=== PATIENT | male | born 1970 | race Caucasian/White ===

== ENCOUNTER → 2020-01-29 | Outpatient (CLI) | payer BC, OTHER ==
[~2020-01-29] MED LIST: GABA300C10 PO; LORA1TAB46 PO
[2020-01-29 10:40] LABS: BASOPHILS # (AUTO) 0.04 x10^3/uL (0-0.1); BASOPHILS % (AUTO) 1 % (0-1); EOSINOPHILS # (AUTO) 0.12 x10^3/uL (0-0.4); EOSINOPHILS % (AUTO) 2 % (1-7); LYMPHOCYTES # (AUTO) 1.24 x10^3/uL (1-3.4); LYMPHOCYTES % (AUTO) 20 % (22-44); MD NO; MEAN CORPUSCULAR HEMOGLOBIN 30.1 pg (27.5-34.5); MEAN CORPUSCULAR HGB CONC 33.3 g/dL (33.2-36.2); MEAN CORPUSCULAR VOLUME 90.4 fL (81-97); MEAN PLATELET VOLUME 7.6 fL (7.4-10.4); MONOCYTES # (AUTO) 0.62 x10^3/uL (0.2-0.8); MONOCYTES % (AUTO) 10 % (2-9); NEUTROPHILS # (AUTO) 4.29 x10^3/uL (1.8-6.8); NEUTROPHILS % (AUTO) 68 % (42-75); PLATELET COUNT 272 x10^3/uL (130-400); RED BLOOD COUNT 5.11 x10^6/uL (4.38-5.82); RED CELL DISTRIBUTION WIDTH 13.3 % (9.4-14.8)
[2020-01-29 10:41] LABS: ALBUMIN 3.7 g/dL (3.4-5.0); ANION GAP 4 mmol/L (5-15); CALCIUM 9.3 mg/dL (8.5-10.1); CHLORIDE 109 mmol/L (98-107)
[2020-01-29 11:08] LABS: % IRON SATURATION 29 % (20-55); ALANINE AMINOTRANSFERASE 42 U/L (12-78); ALKALINE PHOSPHATASE 74 U/L (45-117); BILIRUBIN,TOTAL 0.5 mg/dL (0.2-1.0); CREATININE 1.04 mg/dL (0.7-1.3); IRON LEVEL 99 mcg/dL (65-175); PREALBUMIN 20.8 mg/dL (20.0-40.0); TOTAL IRON BINDING CAPACITY 342 mcg/dL (250-450); TOTAL PROTEIN 7.7 g/dL (6.4-8.2); TRANSFERRIN 252 mg/dL (200-360)
[2020-01-29 11:10] LABS: FOLATE LEVEL 9.1 ng/mL (3.1-17.5)
== END | disposition home or self-care (01) ==
LOC: STAR 09:18
PROVIDERS: ATTEND Thoracic Surgery (Cardiothoracic Vascular Surgery)
DX: Z01.818 Encounter for other preprocedural examination (principal)
CPT/HCPCS: 36415; 71046; 80053; 82306; 82607; 82728; 82746; 83540; 83550; 83970; 84134; 84425; 84466; 85025; 93005

== ENCOUNTER → 2020-02-01 | Outpatient (CLI) | payer OTHER | END | disposition home or self-care (01) | LOC: STAR 14:29 | PROVIDERS: ATTEND Anesthesiology | DX: Z20.828 Contact with and (suspected) exposure to other viral communicable diseases (principal) | CPT/HCPCS: 36415; 87635 ==

== ENCOUNTER 2020-02-06 06:11 | Inpatient (IN) | payer BC, OTHER ==
[~2020-02-06] VITALS: Ht 185.4 cm; Wt 145.3 kg
[2020-02-06] MEDS ORDERED: LACTATED RINGERS 1,000 ML IV SCH (06:26)
[2020-02-06] MEDS ORDERED: ACETAMINOPHEN 100 ML IVPB ONE (06:30)
[2020-02-06] MEDS ORDERED: CHLORHEXIDINE 15 ML UDC MM ONE (06:30)
[2020-02-06] MEDS ORDERED: SCOPOLAMINE 1MG PATCH TD ONE (06:30)
[2020-02-06] MEDS ORDERED: FENTANYL PF 250 MCG/5ML ONE ×2 (06:31→08:12)
[2020-02-06] MEDS ORDERED: MIDAZOLAM 1 MG/ML, 2ML ONE (06:31)
[2020-02-06] MEDS ORDERED: PHENYLEPHRINE 10 MG/ML ONE (06:35)
[2020-02-06] MEDS ORDERED: NEOSTIGMINE 1 MG/ML, 10ML ONE (06:54)
[2020-02-06] MEDS ORDERED: ONDANSETRON 2MG/ML, 2ML ONE (06:54)
[2020-02-06] MEDS ORDERED: PROPOFOL 10 MG/ML, 20ML ONE (06:54)
[2020-02-06] MEDS ORDERED: CEFAZOLIN 1,000 MG ONE ×2 (06:54→07:45)
[2020-02-06] MEDS ORDERED: GLYCOPYRROLATE 0.2MG/1ML, 5ML ONE (06:54)
[2020-02-06] MEDS ORDERED: ROCURONIUM 10MG/ML,5ML ONE (06:54)
[2020-02-06] MEDS ORDERED: DEXAMETHASONE 4 MG/ML, 1ML ONE (06:54)
[2020-02-06] MEDS ORDERED: PROPOFOL 50 ML ONE (06:54)
[2020-02-06] MEDS ORDERED: LABETALOL 5MG/ML, 20ML IV PRN (07:00)
[2020-02-06] MEDS ORDERED: MEPERIDINE/PF 25MG/0.5ML IVPush PRN (07:00)
[2020-02-06] MEDS ORDERED: hydrALAzine 20 MG/ML, 1ML IV PRN (07:00)
[2020-02-06] MEDS ORDERED: OXYcodone 5 MG/5 ML ORAL.SOL UDC PO PRN (07:00)
[2020-02-06] MEDS ORDERED: HYDROmorphone 1 MG/ML, 1ML INJ IVPush PRN (07:00)
[2020-02-06] MEDS ORDERED: HALOPERIDOL 5 MG/ML IV PRN (07:00)
[2020-02-06] MEDS ORDERED: PROMETHAZINE 25 MG/ML, 1ML IVPush PRN (07:00)
[2020-02-06 07:16] LABS: CHOL/HDL RATIO 4.8; LDL/HDL RATIO 3.5 (0.5-3.0)
[2020-02-06] MEDS ORDERED: EPINEPHRINE 1 MG/ML, 1ML ONE (07:23)
[2020-02-06] MEDS ORDERED: BUPIVACAINE/PF 0.5% ONE (07:23)
[2020-02-06] MEDS ORDERED: hydrALAzine 20 MG/ML, 1ML ONE ×2 (07:35→08:36)
[2020-02-06] MEDS ORDERED: BUPIVACAINE/PF-EPI 0.5% 1:200K INFIL ONE (07:50)
[2020-02-06] MEDS ORDERED: FENTANYL PF 100 MCG/2ML ONE (09:30)
[2020-02-06] MEDS ORDERED: HYDROmorphone 1 MG/ML, 1ML INJ IM PRN (09:30)
[2020-02-06] MEDS ORDERED: LORazepam 2 MG/ML, 1ML IV PRN (09:30)
[2020-02-06] MEDS ORDERED: DIPHENHYDRAMINE 50 MG/ML, 1ML IV PRN (09:30)
[2020-02-06] MEDS ORDERED: ONDANSETRON 2MG/ML, 2ML IVPush PRN (09:30)
[2020-02-06] MEDS ORDERED: morphine SULFATE 10 MG/ML, 1ML ONE (09:33)
[2020-02-06] MEDS: FENTANYL PF 100 MCG/2ML IV PRN ×3 (09:34→09:50)
[2020-02-06] MEDS: morphine SULFATE 10 MG/ML, 1ML IVPush PRN ×2 (09:35→10:00)
[2020-02-06] MEDS ORDERED: ENOXAPARIN 40 MG/0.4 ML SQ SCH (11:00)
[2020-02-06] MEDS: ACETAMINOPHEN 100 ML IV SCH ×2 (13:25→20:30)
[2020-02-06] MEDS: HYDROmorphone 1 MG/ML, 1ML INJ IVPush PRN ×3 (13:55→18:51)
[2020-02-06 14:30] VITALS: BP 131/72
[2020-02-06] MEDS: HYDROcodone/APAP 7.5-325MG/15ML UDC PO PRN ×2 (16:12→20:30)
[2020-02-06] MEDS: POTASSIUM CHLORIDE 20 MEQ in LACTATED RINGERS 1,000 ML IV SCH ×2 (16:12→19:05)
[2020-02-06] MEDS: LORATADINE 10 MG TABLET PO SCH (20:29)
[2020-02-06] MEDS: FAMOTIDINE 20 MG/2 ML IVPush SCH (20:29)
[2020-02-06 20:59] VITALS: BP_SYST 118; BP_SYST 159; BP_DIAS 68; BP_DIAS 80
[2020-02-07] MEDS: POTASSIUM CHLORIDE 20 MEQ in LACTATED RINGERS 1,000 ML IV SCH (00:41)
[2020-02-07] MEDS: HYDROcodone/APAP 7.5-325MG/15ML UDC PO PRN ×3 (01:15→09:16)
[2020-02-07] MEDS: HYDROmorphone 1 MG/ML, 1ML INJ IVPush PRN (03:46)
[2020-02-07 04:18] VITALS: BP 161/80
[2020-02-07 05:30] LABS: ALBUMIN 3.4 g/dL (3.4-5.0); ANION GAP 6 mmol/L (5-15); CALCIUM 8.6 mg/dL (8.5-10.1); CHLORIDE 105 mmol/L (98-107); CREATININE 0.94 mg/dL (0.7-1.3)
[2020-02-07 05:38] LABS: BASOPHILS % (AUTO) 0 % (0-1); EOSINOPHILS # (AUTO) 0.01 x10^3/uL (0-0.4); EOSINOPHILS % (AUTO) 0 % (1-7); LYMPHOCYTES # (AUTO) 1.04 x10^3/uL (1-3.4); LYMPHOCYTES % (AUTO) 7 % (22-44); MD NO; MEAN CORPUSCULAR HEMOGLOBIN 30.2 pg (27.5-34.5); MEAN CORPUSCULAR HGB CONC 33.3 g/dL (33.2-36.2); MEAN CORPUSCULAR VOLUME 90.7 fL (81-97); MEAN PLATELET VOLUME 7.6 fL (7.4-10.4); MONOCYTES # (AUTO) 1.34 x10^3/uL (0.2-0.8); MONOCYTES % (AUTO) 9 % (2-9); NEUTROPHILS # (AUTO) 11.87 x10^3/uL (1.8-6.8); NEUTROPHILS % (AUTO) 83 % (42-75); PLATELET COUNT 269 x10^3/uL (130-400); RED BLOOD COUNT 4.74 x10^6/uL (4.38-5.82); RED CELL DISTRIBUTION WIDTH 13.6 % (9.4-14.8)
[2020-02-07 06:32] VITALS: BP 160/77
[2020-02-07] MEDS: FAMOTIDINE 20 MG/2 ML IVPush SCH (07:53)
[2020-02-07] MEDS: LORATADINE 10 MG TABLET PO SCH (07:53)
[2020-02-07] MEDS ORDERED: HYDR15SO3 PO (08:48)
[2020-02-07 10:15] VITALS: BP 138/85
== END 2020-02-07 10:42 | disposition home or self-care (01) | DRG 621 ==
LOC: ORIP 06:11 → 4NE 10:40 → DCLOUNGE 02-07 10:25
PROVIDERS: ADMIT Thoracic Surgery (Cardiothoracic Vascular Surgery); ATTEND Thoracic Surgery (Cardiothoracic Vascular Surgery)
PROC: 0DB64Z3 Excision of Stomach, Percutaneous Endoscopic Approach, Vertical (ICD-10-PCS; principal; 2020-02-06 07:30)
DX: E66.01 Morbid (severe) obesity due to excess calories (principal); E78.00 Pure hypercholesterolemia, unspecified; I10 Essential (primary) hypertension; K66.0 Peritoneal adhesions (postprocedural) (postinfection); Z68.41 Body mass index [BMI] 40.0-44.9, adult
CPT/HCPCS: 36415; J3490; S0020; 80048; 80061; 82040; 85025; G0378; J0131; J0171; J0690; J1100; J1170; J1650; J2250; J2405; J2704; J2710; J3010; J3480; J0360; J2270; J2370; J7120